=== PATIENT | female | born 1995 | race Two or more races ===

== ENCOUNTER 2018-04-09 16:11 | Outpatient (CLI) | payer OTHER ==
[2018-04-10] MEDS ORDERED: FERROUS SULFAT325 MG PO (14:23)
== END 2018-04-10 14:59 | disposition home or self-care (01) ==
LOC: OBS/DEL 16:11 → EDBD 16:11 → OBS/DEL 16:12
DX: O26.892 Other specified pregnancy related conditions, second trimester (principal); Z04.3 Encounter for examination and observation following other accident; Z34.02 Encounter for supervision of normal first pregnancy, second trimester; O99.012 Anemia complicating pregnancy, second trimester; D64.89 Other specified anemias; W18.39XA Other fall on same level, initial encounter; Y93.89 Activity, other specified; Y92.89 Other specified places as the place of occurrence of the external cause; Y99.8 Other external cause status